=== PATIENT | female | born 2000 | race Caucasian/White ===

== ENCOUNTER 2018-10-18 00:21 | Emergency (ER) | payer MEDICAID | END 2018-10-18 01:30 | disposition left against medical advice (07) | LOC: ED 00:21 | DX: Z53.21 Procedure and treatment not carried out due to patient leaving prior to being seen by health care provider (principal) ==

== ENCOUNTER 2019-03-10 19:04 | Emergency (ER) | payer MEDICAID ==
[~2019-03-10] VITALS: Ht 162.6 cm; Wt 81.6 kg
[2019-03-10 19:24] VITALS: Ht 162.6 cm; Wt 81.6 kg
[2019-03-10 19:52] LABS: BASOPHIL % 0.3 % (0-2); PLATELET COUNT 297 x10^3mcL (130-400)
[2019-03-10 19:53] LABS: RED CELL DISTRIBUTION WIDTH 14.9 % (11.5-14.5)
[2019-03-10 19:59] LABS: CALCIUM 9.3 mg/dL (8.5-10.1); CARBON DIOXIDE 27.5 mmol/L (21-32); CHLORIDE SERUM 104 mmol/L (98-107); CREATININE SERUM 0.8 mg/dL (0.6-1.0); GFR1 > 60 mL/min; GLUCOSE SERUM 107 mg/dL (74-106); POTASSIUM SERUM 3.7 mmol/L (3.5-5.1); SODIUM SERUM 142 mmol/L (136-145)
[2019-03-10 20:03] LABS: ALBUMIN 4.1 g/dL (3.4-5.0); ALKALINE PHOSPHATASE 73 U/L (46-116); ALT/SGPT 22 U/L (14-59); AST/SGOT 11 U/L (15-37); BILIRUBIN TOTAL 1.3 mg/dL (0.20-1.00); LIPASE 42 IU/L (73-393); TOTAL PROTEIN, SERUM 7.9 g/dL (6.4-8.2)
[2019-03-10 20:41] VITALS: BP 131/90
== END 2019-03-10 20:41 | disposition home or self-care (01) ==
LOC: ED 19:04
PROVIDERS: Emergency Medicine
DX: K80.20 Calculus of gallbladder without cholecystitis without obstruction (principal); J45.909 Unspecified asthma, uncomplicated; M54.6 Pain in thoracic spine
CPT/HCPCS: 36415; J1885; Q0162

== ENCOUNTER 2019-11-16 17:24 | Emergency (ER) | payer MEDICAID ==
[~2019-11-16] VITALS: Ht 162.6 cm; Wt 83.5 kg
[2019-11-16 17:26] VITALS: BP 118/87; Ht 162.6 cm; Wt 83.5 kg
== END 2019-11-16 18:04 | disposition home or self-care (01) ==
LOC: ED 17:24
DX: J40 Bronchitis, not specified as acute or chronic (principal)
CPT/HCPCS: 87804